=== PATIENT | male | born 2000 | race Caucasian/White ===

== ENCOUNTER 2023-10-30 11:47 | Outpatient (CLI) | payer BC, SELFPAY ==
[2023-10-30 12:02] LABS: Hematocrit 46.6 % (42.0-52.0); Hemoglobin 15.4 g/dL (14.0-18.0); Mean Corpuscular Hemoglobin 29.7 pg (26-34); Mean Corpuscular Volume 89.8 fl (80-100); Mean Platelet Volume 8.8 fl (7.4-10.4); Platelet Count Result 288 k/mm3 (150-375); Red Blood Count 5.19 M/mm3 (4.6-6.20); Red Cell Distribution Width 13.2 % (11.5-14.5); White Blood Count 6.6 K/mm3 (4.5-10.0)
[2023-10-30 12:17] LABS: Alanine Aminotransferase 12 U/L (6-50); Albumin Level 4.7 g/dL (3.5-5.1); Alkaline Phosphatase 62 U/L (38-126); Anion Gap 8 mmol/L (4-12); Aspartate Amino Transferase 28 U/L (17-59); Bilirubin,Total 0.7 mg/dL (0.2-1.3); Blood Urea Nitrogen 14 mg/dL (9-20); Calcium 9.3 mg/dL (8.4-10.2); Carbon Dioxide 30 mmol/L (22-30); Chloride 99 mmol/L (98-107); Estimated Glomerular Filt Rate > 60; Glucose 98 mg/dL (65-110); Potassium 4.3 mmol/L (3.4-5.0); Sodium 137 mmol/L (137-145)
== END 2023-10-30 11:48 | disposition home or self-care (01) ==
PROVIDERS: PCP Internal Medicine; Visit Provider Nurse Practitioner Family
DX: K59.00 Constipation, unspecified (principal); R10.9 Unspecified abdominal pain
CPT/HCPCS: 36415; 80053; 84443; 85027

== ENCOUNTER 2023-12-01 00:49 | Day surgery (SDC) | payer BC, SELFPAY ==
[2023-11-17 10:32] VITALS: BMI 23.1
[2023-12-01 07:24] VITALS: BP 113/61; PULSE 80; RESP 16; TEMP 36; O2SAT 98; BMI 22.5
[2023-12-01] MEDS: LACTATED RINGERS 1,000 ML 150 ML IV CONT (07:35)
--- NOTE | 2023-12-01 08:06 | P.PNAN_ITS ---
Anes - Initial Pre Proc Eval Procedure: Operation Date: 12/01/23 08:30 Proposed Procedures p Colonoscopy - Dewey Castillo MD Date/Time: 12/01/23 08:06 Surgeon: Dewey Castillo MD Pre Op Diagnosis: Constipation, Abd. Pain, CIBH Patient Data Age: 23 Gender: M Height: 1.7 m Weight: 65.3 kg Last Vital Signs Temp 96.8 F L 12/01/23 07:24 Pulse 80 12/01/23 07:24 Resp 16 12/01/23 07:24 BP 113/61 12/01/23 07:24 Pulse Ox 98 12/01/23 07:24 O2 Del Method Room Air 12/01/23 07:24 Allergies Allergy/AdvReac Type Severity Reaction Status Date / Time Sulfa (Sulfonamide Allergy Unknown Unknown Verified 12/01/23 07:23 Antibiotics) Home Medications Medication Instructions Recorded Confirmed Type dicyclomine 10 mg capsule 10 mg PO TID PRN abdominal pain 11/10/23 12/01/23 Rx #90 caps Patient hx anesthesia problems: none Family hx anesthesia problems: none Results Review: All pre-operative results and documents have been reviewed as part of the pre- operative evaluation. [facility] Family History Family History Father Brain cancer Grandparent Lung cancer Social History Social History Smoking status: Never smoker Second hand tobacco smoke exposure: No Alcohol intake: current Drinks per week: 3 Substance use: current Substance use type: marijuana Lack of Transportation: No Lack of Food: Never True Current Housing: I Have Housing Concerned About Future Housing: No Difficulty Paying Gas/Electric Bills: No Difficulty Paying for Meds: No Currently Unemployed: No Education: High School Diploma/GED Difficulty w/ Childcare or Family Care: No Living arrangements: with family Spiritual care concerns: No Anes - Eval Final PreProcedure Day of Procedure 12/01/23 08:06 Patient weight: normal Heart: regular rate and rhythm Lungs: clear to auscultation Airway: Mallampati scale class II Neurological: alert and oriented Last oral intake: >/= 8 hours ASA classification: I Emergent: no Anesthetic plan: proceed Anesthesia type and monitoring: general GIVS and standard monitoring Results Review: All pre-operative results and documents have been reviewed as part of the pre- operative evaluation. Informed Consent: The patient's anesthetic plan and its attendant risks and benefits were discussed with the patient/family/POA. Questions were solicited and answers provided to the satisfaction of the patient/family/POA.
--- NOTE | 2023-12-01 08:12 | WPDHPUPDATE1 ---
History and Physical Update Update Date/Time: 12/01/23 08:12 History and Physical has been reviewed, including an updated exam of the patient. There are NO changes in the patient's condition. Risks, benefits, and alternatives have been discussed and questions answered. Patient agrees to proceed with procedure.
[2023-12-01 08:31] VITALS: BP 96/55; PULSE 77; RESP 18; O2SAT 97
[2023-12-01 08:41] VITALS: BP 96/77; PULSE 59; RESP 20; O2SAT 100
[2023-12-01 08:51] VITALS: BP 108/69; PULSE 66; RESP 21; O2SAT 100
== END 2023-12-01 09:05 | disposition home or self-care (01) ==
PROVIDERS: PCP Internal Medicine; Referring Provider Nurse Practitioner Family; Visit Provider Internal Medicine Gastroenterology
PROC: 0DJD8ZZ Inspection of Lower Intestinal Tract, Via Natural or Artificial Opening Endoscopic (ICD-10-PCS; CPT 45378; principal; 2023-12-01 08:30)
DX: K64.8 Other hemorrhoids (principal); Z80.1 Family history of malignant neoplasm of trachea, bronchus and lung; Z80.8 Family history of malignant neoplasm of other organs or systems
CPT/HCPCS: 45378; J2003; J2704; J7120

== ENCOUNTER 2023-12-22 12:59 | Outpatient (CLI) | payer BC, SELFPAY ==
--- NOTE | ~2023-12-22 | XR_ITS ---
Supine and upright views of the abdomen Clinical history: Abdominal pain, constipation Findings: Bowel gas pattern is nonspecific. No evidence for obstruction or free air. No abnormal mass lesion or calcification is seen. Osseous structures are intact. Impression: Moderate stool burden. Reviewed, dictated and finalized at [facility]. Impression: Moderate stool burden.
[2023-12-22 13:18] LABS: Add Urine Microscopic? YES; Appearance Urine Clear (Clear); Bacteria Urine None Seen /hpf; Bilirubin Urine Negative (Negative); Blood Urine Trace (Negative); Color Urine Yellow (Yellow); Glucose Urine UA Negative (Negative); Ketones Urine Negative (Negative); Leukocyte Esterase Ur Negative LEU/UL (Negative); Nitrate Urine Negative (Negative); Non Pathogenic Casts 0-2; Protein Urine Negative (Negative); Specific Grav Ur 1.007 (1.001-1.035); Squamous Epithelial Cell Urine None Seen /hpf (Few); Urobilinogen Urine 0.2 mg/dL (<2.0); WBC Urine 0-5 /hpf (0-3)
== END 2023-12-22 13:00 | disposition home or self-care (01) ==
LOC: ANHIMG 13:00
PROVIDERS: PCP Internal Medicine; Visit Provider Nurse Practitioner Family
DX: K59.00 Constipation, unspecified (principal); R10.9 Unspecified abdominal pain
CPT/HCPCS: 74018; 81001

== ENCOUNTER 2024-01-12 08:19 | Outpatient (CLI) | payer BC, SELFPAY ==
--- NOTE | ~2024-01-12 | CT_ITS ---
EXAMINATION: CT abdomen pelvis w con DATE: 01/12/2024 09:22 INDICATION: Unspecified abdominal pain TECHNIQUE: Computed tomography (CT) of the abdomen and pelvis was performed with 100 mL Omnipaque-350 intravenous contrast. Automated exposure control and iterative reconstruction technique were employe d. The dose-length product was 250.29 mGy-cm. COMPARISON: None FINDINGS: Lung bases are clear. Heart size is normal. No pericardial or pleural effusion. Liver, gallbladder, s pleen, pancreas, bilateral adrenal glands and left kidney are normal. 1.6 similar exophytic cyst dmitri ing from the lower pole of the right kidney. Bowels including the appendix are normal. Bladder is nor mal. No free intraperitoneal gas or fluid. No pathologically enlarged abdominal or pelvic lymphadenop athy. 14 degree thoracolumbar dextrocurvature. IMPRESSION: 1. No acute intra-abdominal/pelvic process. Reviewed, dictated and finalized at location [facility]. [facility]
== END 2024-01-12 08:20 | disposition home or self-care (01) ==
PROVIDERS: PCP Internal Medicine; Visit Provider Nurse Practitioner Family
DX: R10.9 Unspecified abdominal pain (principal)
CPT/HCPCS: 74177; Q9967

== ENCOUNTER 2024-01-26 15:44 | Outpatient (CLI) | payer BC, SELFPAY ==
[2024-01-28 15:38] LABS: Immunoglobulin A 268 mg/dL (47-310); TTG IGA AB <1.0 U/mL
== END 2024-01-26 15:45 | disposition home or self-care (01) ==
PROVIDERS: PCP Internal Medicine; Visit Provider Nurse Practitioner Family
DX: R14.0 Abdominal distension (gaseous) (principal); R63.4 Abnormal weight loss; R68.81 Early satiety
CPT/HCPCS: 36415; 82784; 86364

== ENCOUNTER 2024-06-30 17:37 | Outpatient (CLI) | payer BC, SELFPAY ==
--- OUTSIDE RECORDS SUMMARY | 2024-06-30 17:40 | XMS_ITS | Clinical Summary ---
Author Organization [facility] Address [address] [place] [id number] Care Team Providers Care Vice President Of Marketing Name Role Phone Bryan Verdugo DO Primary Care Provider [phone] Allergies Active Allergy Reactions Criticality Noted Date Comments Sulfa Rash Medium 05/11/2024 Medications acetaminophen (TYLENOL) 500 mg tablet Take 2 tablets (1,000 mg total) by mouth every 6 (six) hours as needed for pain 42 tablet 05/11/2024 Active dicyclomine (BENTYL) 20 mg tabletIndicatio ns:Abdominal Pain with Cramps Take 1 tablet (20 mg total) by mouth every 6 (six) hours as needed (For a bd pain) 20 tablet 05/11/2024 Active Encounters Date Type Department Care Team Description 05/11/2024 8:34 PM CDT - 05/11/2024 11:15 PM CDT Emergency [facility] Emergency Department [address] [place] [id number] Richmond Sanchez MD Abdominal pain (Primary Dx); Hematochezia Discharge Disposition: Discharge to home or self care from Last 3 Months Medical History Medical History Date Comments IBS (irritable bowel syndrome) Social History Tobacco Use Types Packs/Day Years Used Date Smoking Tobacco: Never Assessed Personal Safety Answer Date Recorded Have you ever been in or are you currently in a harmful physical or emotional relationship or is someone making you feel afraid or unsafe? 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 Gender Identity Not on file Sexual Orientation Not on file Obstetrics History Last Filed Vital Signs Vital Sign Reading Time Taken Comments Blood Pressure 107/66 05/11/2024 10:43 PM CDT Pulse 57 05/11/2024 10:43 PM CDT Temperature 36.9 C (98.5 F) 05/11/2024 8:05 PM CDT Respiratory Rate 18 05/11/2024 10:4 3 PM CDT Oxygen Saturation 99% 05/11/2024 10: 43 PM CDT Inhaled Oxygen Concentration - - Weight 59.3 kg (130 lb 11.7 oz) 05/11/2024 8:05 PM CDT Height - - Body Mass Index - - Plan of Treatment Health Maintenance Due Date Last Done Comments Depression Screening 2000 Hepatitis C Screening 2000 Meningococcal B Vaccine (2 of 2 - Bexsero SCDM 2-dose series) 05/31/2018 11/30/2017 Regular Well Visit/Exam 18-64 2018 DTaP/Tdap/Td Vaccine (7 - Td or Tdap) 09/24/2021 09/25/2011, 09/04/2006, 02/07/2002, Additional history exists Covid-19 Vaccine ( season) 2023 06/11/2020, 05/21/2020 Influenza Vaccine (Season Ended) 2024 12/19/2018, 11/28/2014 Hepatitis B Screening Completed 11/05/2001 , 03/08/2001, 01/06/2001 Pneumococcal vaccine <65 Aged Out 002, 05/07/2001, 03/08/2001, Additional history exists No longer eligible based on patient's age to complete this topic Varicella Vaccines Completed 09/04/2006, 11/05/2001 HPV Vaccines Completed 09/03/2015, 07/2014, 08/22/2014 Procedures Procedure Name Priority Date/Time Associated Diagnosis Comments DRUGS OF ABUSE SCREEN, URINE WITHOUT CONFIRMATION STAT 05/11/2024 9:[address] ABDOMEN PELVIS W CONTRAST ED 05/11/2024 9:38 PM CDT URINALYSIS, MICROSCOPIC ONLY STAT 05/11/2024 8:51 PM CDT URINALYSIS AND REFLEX TO MICROSCOPIC AND CULTURE STAT 05/11/2024 8:51 PM CDT LIPASE Add-On 05/11/2024 8:31 PM CDT EGFR STAT 05/11/2024 8:31 PM CDT DIFFERENTIAL AUTO STAT 05/11/2024 8:3 1 PM CDT COMPREHENSIVE METABOLIC PANEL STAT 05/11/2024 8:31 PM CDT CBC WITH AUTO DIFFERENTIAL STAT 05/11/2024 8:31 PM CDT from Last 3 Months Results * (ABNORMAL) Drugs of Abuse Screen, Urine without Confirmation (05/11/2024 9:50 PM CDT) [facility] Amphetamine, ur Not Detected CutOff 500ng/mL Comment: Interpretive Data - Amphetamines: Samples containing greater than 500 ng/mL d-methamphetamine or other cross-reacting amphetamine compounds are reported as positive. Amphetamine immunoassays are subject to significant false positive rates due to cross-reactivity of non-amphetamine drugs. Confirmatory testing required for definitive results. Current Interpretive Data was last reviewed 2022. Testing performed by: [address] [address] Barbiturates, ur Not Detected CutOff 200ng/mL SUNIL Comment: Interpretive Data - Barbiturates: Samples containing greater than 200 ng/mL secobarbital or other cross-reacting barbiturate compounds are reported as positive. False positive and false negative results are possible. Confirmatory testing required for definitive results. Current Interpretive Data was last reviewed 2022. Testing performed by: [address] [address] Benzodiazepines, ur Not Detected CutOff 100ng/mL SUNIL Comment: Interpretive Data - Benzodiazepines: Samples containing greater than 100 ng/mL nordiazepam or other cross-reacting compounds are reported as positive. False positive and false negative results are possible. Confirmatory testing required for definitive results. Current Interpretive Data was last reviewed 2022. Testing performed by: [facility], [address] [place] [address]., [address] Cannabinoids, ur Screen Positive, presumptive (A) CutOff 50 ng/mL [facility] Comment: Interpretive Data - Cannabinoids: Samples containing greater than 50 ng/mL delta-9 THC -COOH or other cross- reacting compounds are reported as positive. False positive and false negative results are possible. Confirmatory testing required for definitive results. Current Interpretive Data was last reviewed 2022. Testing performed by: [facility], [address] [place] [address], [place]., [address] Cocaine, ur Not Detected CutOff 150ng/mL [facility] Comment: Interpretive Data - Cocaine: Samples containing greater than 150 ng/mL benzoylecgonine or other cross- reacting compounds are reported as positive. False positive and false negative results are possible. Confirmatory testing required for definitive results. Current Interpretive Data was last reviewed 2022. Testing performed by: [facility], [address] [place] [address]., [address] Fentanyl, Ur Not Detected CutOff 5 ng/mL [facility] Comment: Interpretive Data - Fentanyl: Samples containing greater than 1 ng/mL fentanyl or other cross-reacting fentanyl compounds are reported as positive. False positive and false negative results are possible. Confirmatory testing required for definitive results. Current Interpretive Data was last reviewed 2022. Testing performed by: [address] [address] Methadone, ur Not Detected CutOff 300ng/mL [facility] Comment: Interpretive Data - Methadone: Samples containing greater than 300 ng/mL d,l-methadone or other cross-reacting compounds are reported as positive. False positive and false negative results are possible. Confirmatory testing required for definitive results. Current Interpretive Data was last reviewed 2022. Testing performed by: [address] [address] Opiates, ur Not Detected CutOff 300ng/mL [facility] Comment: Interpretive Data - Opiates: Samples containing greater than 300 ng/mL morphine or other cross-reacting compounds are reported as positive. False positive and false negative results are possible. Confirmatory testing required for definitive results. Current Interpretive Data was last reviewed 2022. Testing performed by: [address] [address] Oxycodone, ur Not Detected CutOff 100ng/mL [facility] Comment: Interpretive Data - Oxycodone: Samples containing greater than 100 ng/mL oxycodone or other cross-reacting compounds are reported as positive. False positive and false negative results are possible. Confirmatory testing required for definitive results. Current Interpretive Data was last reviewed 2022. Testing performed by: [address] [address] Phencyclidine, ur Not Detected CutOff 25 ng/mL [facility] Comment: Interpretive Data - Phencyclidine: Samples containing greater than 25 ng/mL phencyclidine or other cross-reacting compounds are reported as positive. False positive and false negative results are possible. Confirmatory testing required for definitive results. Current Interpretive Data was last reviewed 2022. Testing performed by: [address] [address] Urine Creatinine 133 mg/dL SUNIL Comment: Interpretive Data Urine Creatinine: < 10 mg/dL is extremely dilute = or > 10 but < 20 mg/dL is dilute = or > 20 mg/dL is normal Current Interpretive Data was last revised on 2017. Testing performed by: [address] [address] Urine 05/11/2024 9:50 PM CDT 05/11/2024 9:52 PM CDT Narrative SUNIL - 05/11/2024 10:16 PM CDT Drug of Abuse screening is performed by immunoassay for medical purposes only. This is not to be used for Pain Management purposes. us Richmond Sanchez MD LAB URINE ORDERABLES Final Res ult SUNIL [address] [facility] Department [place] [address] * CT Abdomen Pelvis W Contrast (05/11/2024 9:38 PM CDT) Anatomical Region Laterality Modality Body N/A Computed Tomogra phy 05/11/2024 9:51 PM CDT Narrative 05/11/2024 10:09 PM CDT EXAM DESCRIPTION: CT ABDOMEN PELVIS W CONTRAST REASON FOR STUDY: lower abd pain Ongoing abd pain x 6 months, dx with IBS. Yesterday had bright red rectal bleeding with a BM. Denies hemorrhoids. C/o ongoing abd pain. TECHNIQUE: CT scan of the abdomen and pelvis performed with intravenous and without oral contrast using helical scanning technique with dynamic intravenous contrast injection. Reconstructed coronal and sagittal MPR images reviewed. All images stored on PACS. Automated exposure control was used as a dose optimization technique for this examination. CONTRAST TYPE/DOSE: 100mL of IOVERSOL 350 MG IODINE/ML INTRAVENOUS SYRINGE injected COMPARISON: None available FINDINGS: LOWER CHEST: Imaged lung bases are clear. No pleural effusion. Imaged portions of the heart and esophagus are within normal limits. LIVER: Normal size. No identified cystic or solid masses. Mild periportal edema which can be seen in fluid resuscitation. The portal veins are patent. GALLBLADDER: Normal. BILE DUCTS: No intrahepatic or extrahepatic ductal dilatation. SPLEEN: Normal size. No focal lesions. PANCREAS: No identified cystic or solid masses. No significant calcifications. No adjacent inflammation or peripancreatic fluid collections. Pancreatic duct not dilated. ADRENALS: Normal. KIDNEYS/URINARY TRACT: No identified significant cystic or solid masses. No visualized stones. No hydronephrosis or hydroureter. Symmetric enhancement. Urinary bladder is unremarkable. GI: The stomach is normal. The small bowel and colon are normal in course and caliber with no evidence of obstruction or inflammation. The appendix is normal. PERITONEUM: No free air. Trace volume free pelvic fluid. No lymphadenopathy. RETROPERITONEUM: No mass or adenopathy. REPRODUCTIVE: No significant abnormality. VASCULATURE: No abdominal aortic aneurysm. The abdominal aorta and its branches are patent. MUSCULOSKELETAL: No acute fractures or aggressive osseous lesions. Bone islands are present. IMPRESSION: 1. No discrete CT findings to explain patient's abdominal pain. THIS IS AN ELECTRONICALLY VERIFIED FINAL REPORT 05/11/2024 10:09 PM - Electronically signed by Nadine Anderson M.D. AT: AT Report ID: [id number] Reading Location: [id number] Procedure Note Nadine Anderson MD - 05/11/2024 EXAM DESCRIPTION: CT ABDOMEN PELVIS W CONTRAST REASON FOR STUDY: lower abd pain Ongoing abd pain x 6 months, dx with IBS. Yesterday had bright red rectal bleeding with a BM. Denies hemorrhoids. C/o ongoing abd pain. TECHNIQUE: CT scan of the abdomen and pelvis performed with intravenousand without oral contrast using helical scanning technique with dynamic intravenous contrast injection. Reconstructed coronal and sagittal MPRimages reviewed. All images stored on PACS. Automated exposure control was usedas a dose optimization technique for this examination. CONTRAST TYPE/DOSE: 100mL of IOVERSOL 350 MG IODINE/ML INTRAVENOUSSYRINGE injected COMPARISON: None available FINDINGS: LOWER CHEST: Imaged lung bases are clear. No pleuraleffusion. Imaged portions of the heart and esophagus are within normal limits. LIVER: Normal size. No identified cystic or solid masses. Mildperiportal edema which can be seen in fluid resuscitation. The portal veins arepatent. GALLBLADDER: Normal. BILE DUCTS: No intrahepatic or extrahepatic ductal dilatation. SPLEEN: Normal size. No focal lesions. PANCREAS: No identified cystic or solid masses. No significant calcifications. No adjacent inflammation or peripancreatic fluidcollections. Pancreatic duct not dilated. ADRENALS: Normal. KIDNEYS/URINARY TRACT: No identified significant cystic or solid masses.No visualized stones. No hydronephrosis or hydroureter. Symmetricenhancement. Urinary bladder is unremarkable. GI: The stomach is normal. The small bowel and colon are normal incourse and caliber with no evidence of obstruction or inflammation. The appendixis normal. PERITONEUM: No free air. Trace volume free pelvic fluid. No lymphadenopathy. RETROPERITONEUM: No mass or adenopathy. REPRODUCTIVE: No significant abnormality. VASCULATURE: No abdominal aortic aneurysm. The abdominal aorta and its branches are patent. MUSCULOSKELETAL: No acute fractures or aggressive osseous lesions. Bone islands are present. IMPRESSION: 1. No discrete CT findings to explain patient's abdominalpain. THIS IS AN ELECTRONICALLY VERIFIED FINAL REPORT 05/11/2024 10:09 PM - Electronically signed by Nadine Anderson M.D. AT: AT Report ID: [id number] Reading Location: [place] [address] Richmond Sanchez MD IM CT PROCEDURES Final Result * (ABNORMAL) Urinalysis reflex to microscopic and culture Urine (05/11/2024 8:51 PM CDT) Color, ur Yellow Yellow Comment:Testing performed by : [address] [address] Clarity, ur Cloudy(A) Clear SUNIL Comment:Testing performed by : [address] [address] Specific gravity, ur 1.016 1.003 - 1.030 SUNIL Comment:Testing performed by : [address] [address] pH, urine 7.5 SUNIL Comment: Interpretive Data U rine pH is affected by diet, medications, systemic acid-base disturbances, and renal tubular function. pH may affect urinary stone formation. For example, urine pH below 6.0 may help reduce the tendency for calcium phosphate stones and pH greater than 6.0 may reduce the tendency for uric acid stone formation. Source: [employer] Current Interpretive Data was last revised on 2017 Testing performed by: [address] [address] Protein, ur ql Negative Negative SUNIL Comment:Testing performed by : [address] [address] Glucose, ur ql Negative Negative SUNIL Comment:Testing performed by : [address] [address] Ketones, ur Trace(A) Negative SUNIL Comment:Testing performed by : [address] [address] Bilirubin, ur Negative Negative SUNIL Comment:Testing performed by : [address] [address] Blood, ur Trace(A) Negative SUNIL Comment:Testing performed by : [address] [address] Urobilinogen, ur <2.0 <2.0 mg/dL SUNIL Comment:Testing performed by : [address] [address] Nitrite, ur Negative Negative SUNIL Comment:Testing performed by : [address] [address] Leukocyte esterase, ur Negative Negative SUNIL Comment:Testing performed by : [address] [address] UA reflex comment Reflex to microscopic UA will be performed. SUNIL Comment:Testing performed by : [address] [address] Urine 05/11/2024 8:51 PM CDT 05/11/2024 8:54 PM CDT us Richmond Sanchez MD LAB MICROBIOLOGY - GENERAL ORD ERABLES Final Result Performing Organization Address [facility] Co de Phone Number SUNIL [address] [facility] Department [place] [address] * (ABNORMAL) Urinalysis, microscopic only (05/11/2024 8:51 PM CDT) WBC, ur 0-5 0 - 5 /HPF Comment:Testing performed by : [address] [address] RBC, ur 11-20(A) 0 - 2 /HPF SUNIL Comment:Testing performed by : [address] [address] Mucous, ur Present(A) SUNIL Comment:Testing performed by : [address] [address] Culture Reflex Comment Reflex conditions for urine culture (WBC >10) not met. SUNIL Comment:Testing performed by : [address] [address] Urine 05/11/2024 8:51 PM CDT 05/11/2024 8:54 PM CDT Richmond Sanchez MD LAB URINE ORDERABLES Final Res ult Performing Organization Address [facility] de Phone Number [place] [phone] [facility] [place] [address] * eGFR (05/11/2024 8:31 PM CDT) [facility] eGFR >90 >=60 mL/min/1. 73 m2 Comment: Interpretive Data Reference Interval Normal >/= 90 mL/min/1.73m2 Mildly decreased* 60 - 89 mL/min/1.73m2 Mildly to moderately decreased 45 - 59 mL/min/1.73m2 Moderately to severely decreased 30 - 44 mL/min/1.73m2 Severely decreased 15 - 29 mL/min/1.73m2 Kidney Failure < 15 mL/min/1.73m2 *Relative to young adult level Estimated glomerular filtration rate is determined by the 2020 CKD-EPI equation recommended by the National Kid[employer] (A Unifying Approach to GFR Estimation: Recommendations of the NKF-ASK Task Force on Reassessing the Inclusion of Race in Diagnosing Kidney Disease, JASN 2020). The CKD-EPI equation should not be used for patients with unstable renal function and has not been validated in children and those over 70. Current interpretive data was last reviewed 2020. Testing performed by: [address] [address] Blood 05/11/2024 8:31 PM CDT 05/11/2024 8:35 PM CDT Richmond Sanchez MD LAB BLOOD ORDERABLES Final Res ult Performing Organization Address [facility] Co de Phone Number [place] [phone] [facility] Department [place] [address] * (ABNORMAL) Differential, auto (05/11/2024 8:31 PM CDT) [facility] Neutrophil abs 5.3 1.5 - 6.5 K/cumm Comment:Testing performed by : [address] [address] Imm gran abs 0.0 0.0 - 0.1 K/cumm SUNIL Comment:Testing performed by : [address] [address] Lymphocyte abs 2.6 0.8 - 3.3 K/cumm CERNER Comment:Testing performed by : [address] [address] Monocyte abs 0.5 0.2 - 0.8 K/cumm CERNER Comment:Testing performed by : [address] [address] Eosinophil abs 0.7(H) 0.0 - 0.5 K/cumm CERNER Comment:Testing performed by : [address], [place]., [address] Basophil abs 0.0 0.0 - 0.1 K/cumm CERPUAM Comment:Testing performed by : [address] [address] Neutrophil pct 57.7 % CERNER Comment: Interpretive Data Percent cell count reference ranges are not reported, since discordance with absolute values may lead to misinterpretation of CBC data. Current Interpretive Data was last revised on 2017. Testing performed by: [address] [address] Imm gran pct 0.2 % CERNER Comment: Interpretive Data Percent cell count reference ranges are not reported, since discordance with absolute values may lead to misinterpretation of CBC data. Current Interpretive Data was last revised on 2017. Testing performed by: [address] [address] Lymphocyte pct 28.7 % CERNER Comment: Interpretive Data Percent cell count reference ranges are not reported, since discordance with absolute values may lead to misinterpretation of CBC data. Current Interpretive Data was last revised on 2017. Testing performed by: [address] [address] Monocyte pct 5.9 % CERNER Comment: Interpretive Data Percent cell count reference ranges are not reported, since discordance with absolute values may lead to misinterpretation of CBC data. Current Interpretive Data was last revised on 2017. Testing performed by: [address] [address] Eosinophil pct 7.1 % CERNER Comment: Interpretive Data Percent cell count reference ranges are not reported, since discordance with absolute values may lead to misinterpretation of CBC data. Current Interpretive Data was last revised on 2017. Testing performed by: [address] [address] Basophil pct 0.4 % SUNIL LAST Comment: Interpretive Data Percent cell count reference ranges are not reported, since discordance with absolute values may lead to misinterpretation of CBC data. Current Interpretive Data was last revised on 2017. Testing performed by: [address] [address] Blood 05/11/2024 8:31 PM CDT 05/11/2024 8:35 PM CDT us Richmond Sanchez MD LAB BLOOD ORDERABLES Final Res ult [facility] [address] [facility] Department [place] [address] * (ABNORMAL) CBC with auto differential (05/11/2024 8:31 PM CDT) WBC 9.2 3.8 - 9.9 K/cumm Comment:Testing performed by : [address] [address] Hgb 14.4 13.0 - 17.5 g/dL SUNIL LAST Comment:Testing performed by : [address] [address] Hct 42.7 38.9 - 50.3 % SUNLI LAST Comment:Testing performed by : [address] [address] Plt 280 150 - 400 K/cumm SUNIL LAST Comment:Testing performed by : [address] [address] MPV 9.0(L) 9.1 - 12.3 fL SUNIL LAST Comment:Testing performed by : [address] [address] RBC 4.79 4.30 - 5.80 M/cumm SUNIL LAST Comment:Testing performed by : [address] [address] MCV 89.1 81.3 - 96.4 fL SUNIL Comment:Testing performed by : [address] [address] MCH 30.1 27.1 - 33.3 pg SUNIL LAST Comment:Testing performed by : [address] [address] MCHC 33.7 32.3 - 35.7 g/dL SUNIL Comment:Testing performed by : [address] [address] RDW CV 13.0 11.1 - 14.9 % SUNIL Comment:Testing performed by : [address] [address] RDW SD 42.9 35.7 - 48.1 fL SUNIL Comment:Testing performed by : [address] [address] NRBC abs 0.00 0.00 - 0.01 K/cumm SUNIL Comment:Testing performed by : [address], [address] Blood 05/11/2024 8:31 PM CDT 05/11/2024 8:35 PM CDT Richmond Sanchez MD LAB BLOOD ORDERABLES Final Res ult Performing Organization Address [facility] Phone Number SUNIL [address] [facility] Department of Laboratories [place], [place] [phone] * Lipase (05/11/2024 8:31 PM CDT) Lipase 19 10 - 99 Units/L Comment:Testing performed by : [address] [address] Blood 05/11/2024 8:31 PM CDT 05/11/2024 10:34 PM CDT Richmond Sanchez MD LAB BLOOD ORDERABLES Final Res ult SUNIL [address] [facility] Department [place] [address] * Comprehensive metabolic panel (05/11/2024 8:31 PM CDT) Sodium 142 135 - 145 mmol/L Comment:Testing performed by : [address] [address] Potassium, pl 3.4 3.3 - 4.9 mmol/L SUNIL Comment: Hemolyzed; Potassium value may be falsely elevated by as much as 1.0 mmol/L. Suggest redraw and reanalysis. Testing performed by: [address] [address] Chloride 106 97 - 110 mmol/L SUNIL Comment:Testing performed by : [address] [address] CO2 27 22 - 32 mmol/L SUNIL Comment:Testing performed by : [address] [address] Anion gap 9 2 - 15 mmol/L SUNIL Comment:Testing performed by : [address] [address] BUN 11 6 - 25 mg/dL SUNIL Comment:Testing performed by : [address] [address] Creatinine 0.89 0.80 - 1.30 mg/dL SUNIL Comment:Testing performed by : [address] [address] Glucose 114 70 - 199 mg/dL SUNIL Comment: Interpretive Data Fasting glucose >/= 126 mg/dl is diagnostic for diabetes. Fasting is defined as no caloric intake for at least 8 hours. Fasting glucose between 100 mg/dl to 125 mg/dl is diagnostic of prediabetes. In a patient with classic symptoms of hyperglycemia or hyperglycemic crisis, a random glucose >/= 200 mg/dl is diagnostic for diabetes. In the absence of unequivocal hyperglycemia, results should be confirmed by repeat testing. The classification and Diagnosis of Diabetes Diabetes Care 2021; 46: S19-S40. Current interpretive data was last revised 2022. Testing performed by: [address] [address] Calcium 9.7 8.5 - 10.3 mg/dL SUNIL Comment:Testing performed by : [address] [address] Bilirubin, total 0.7 0.1 - 1.2 mg/dL SUNIL Comment:Testing performed by : [address] [address] Protein, pl 7.1 6.5 - 8.5 g/dL SUNIL Comment:Testing performed by : [address] [address] Albumin 4.4 3.5 - 5.0 g/dL SUNIL Comment:Testing performed by : [address] [address] Alk phos 59 40 - 130 Units/L SUNIL Comment:Testing performed by : [address] [address] ALT 11 7 - 55 Units/L SUNIL Comment:Testing performed by : [address] [address] AST 23 10 - 50 Units/L SUNIL Comment: Hemolyzed; result may be falsely elevated Testing performed by: [address] [address] Blood 05/11/2024 8:31 PM CDT 05/11/2024 8:35 PM CDT us Richmond Sanchez MD LAB BLOOD ORDERABLES Final Res ult SUNIL 7460 [facility] Department [place] [address] from Last 3 Months Insurance [employer] PRF PPO [place] Care Teams Vice President Of Marketing Relationship Specialty Start Date End Date Bryan Verdugo DO [address] [address] PCP - General Internal Medicine 05/11/24
--- OUTSIDE RECORDS SUMMARY | 2024-06-30 17:40 | XMS_ITS | Referral Summary ---
Author Organization [facility] Address [address] [place] [id number] Care Team Providers Care Stacker Operator Name Role Phone Bryan Verdugo DO Primary Care Provider [phone] Encounters Date Type Department Care Team Description 05/11/2024 8:34 PM CDT - 05/11/2024 11:15 PM CDT Emergency [facility] Emergency Department [address] [place] [id number] Richmond Sanchez MD Abdominal pain (Primary Dx); Hematochezia Discharge Disposition: Discharge to home or self care from Last 3 Months Allergies Active Allergy Reactions Criticality Noted Date [...] a bd pain) 20 tablet 05/11/2024 Active Social History Tobacco Use Types Packs/Day Years Used Date Smoking Tobacco: Never Assessed Personal Safety Answer Date Recorded Have you ever been in or are you currently in a harmful physical or emotional relationship or is someone making you feel afraid or unsafe? Denies 05/11/2024 Sex and Gender Information Value Date Recorded Sex Assigned at Not on file Legal Sex Male 2:49 AM [employer] Gender Identity Not on file Sexual Orientation Not on file Last Filed Vital Signs Vital Sign Reading [...] Mass Index - - Plan of Treatment Not on file Procedures Procedure Name Priority Date/Time Associated Diagnosis [...] Urine without Confirmation (05/11/2024 9:50 PM CDT) Amphetamine, ur Not Detected CutOff 500ng/mL Comment: Interpretive Data - Amphetamines: Samples containing greater than 500 ng/mL d-methamphetamine or other cross-reacting amphetamine compounds are reported as positive. Amphetamine immunoassays are subject to significant false positive rates due to cross-reactivity of non-amphetamine drugs. Confirmatory testing required for definitive results. Current Interpretive Data was last reviewed 2022. Testing performed by: [facility], [address] [place] [address]., [address] Barbiturates, ur Not Detected CutOff 200ng/mL [facility] Comment: Interpretive Data - Barbiturates: Samples containing greater than 200 ng/mL secobarbital or other cross-reacting barbiturate compounds are reported as positive. False positive and false negative results are possible. Confirmatory testing required for definitive results. Current Interpretive Data was last reviewed 2022. Testing performed by: [address] [address] Benzodiazepines, ur Not Detected CutOff 100ng/mL [facility] Comment: Interpretive Data - Benzodiazepines: Samples containing greater than 100 ng/mL nordiazepam or other cross-reacting compounds are reported as positive. False positive and false negative results are possible. Confirmatory testing required for definitive results. Current Interpretive Data was last reviewed 2022. Testing performed by: [address] [address] Cannabinoids, ur Screen Positive, presumptive (A) CutOff 50 ng/mL [facility] Comment: Interpretive Data - Cannabinoids: Samples containing greater than 50 ng/mL delta-9 THC -COOH or other cross- reacting compounds are reported as positive. False positive and false negative results are possible. Confirmatory testing required for definitive results. Current Interpretive Data was last reviewed 2022. Testing performed by: [address] [address] Cocaine, ur Not Detected CutOff 150ng/mL [facility] Comment: Interpretive Data - Cocaine: Samples containing greater than 150 ng/mL benzoylecgonine or other cross- reacting compounds are reported as positive. False positive and false negative results are possible. Confirmatory testing required for definitive results. Current Interpretive Data was last reviewed 2022. Testing performed by: [address] [address] Fentanyl, Ur Not Detected CutOff 5 ng/mL [facility] Comment: Interpretive Data - Fentanyl: Samples containing greater than 1 ng/mL fentanyl or other cross-reacting fentanyl compounds are reported as positive. False positive and false negative results are possible. Confirmatory testing required for definitive results. Current Interpretive Data was last reviewed 2022. Testing performed by: [address] [address] Methadone, ur Not Detected CutOff 300ng/mL [facility] Comment: Interpretive Data - Methadone: Samples containing greater than 300 ng/mL d,l-methadone or other cross-reacting compounds are reported as positive. False positive and false negative results are possible. Confirmatory testing required for definitive results. Current Interpretive Data was last reviewed 2022. Testing performed by: [address] [address] Opiates, ur Not Detected CutOff 300ng/mL [facility] Comment: Interpretive Data - Opiates: Samples containing greater than 300 ng/mL morphine or other cross-reacting compounds are reported as positive. False positive and false negative results are possible. Confirmatory testing required for definitive results. Current Interpretive Data was last reviewed 2022. Testing performed by: [address] [address] Oxycodone, ur Not Detected CutOff 100ng/mL [facility] Comment: Interpretive Data - Oxycodone: Samples containing greater than 100 ng/mL oxycodone or other cross-reacting compounds are reported as positive. False positive and false negative results are possible. Confirmatory testing required for definitive results. Current Interpretive Data was last reviewed 2022. Testing performed by: [address] [address] Phencyclidine, ur Not Detected CutOff 25 ng/mL [facility] Comment: Interpretive Data - Phencyclidine: Samples containing greater than 25 ng/mL phencyclidine or other cross-reacting compounds are reported as positive. False positive and false negative results are possible. Confirmatory testing required for definitive results. Current Interpretive Data was last reviewed 2022. Testing performed by: [address] [address] Urine Creatinine 133 mg/dL SUNIL Comment: Interpretive Data Urine Creatinine: < 10 mg/dL is extremely dilute = or > 10 but < 20 mg/dL is dilute = or > 20 mg/dL is normal Current Interpretive Data was last revised on 2017. Testing performed by: [facility], [address] [place] [address], [place]., [address] Urine 05/11/2024 9:50 PM CDT 05/11/2024 9:52 PM CDT Narrative SUNIL LAST - 05/11/2024 10:16 PM CDT Drug of Abuse screening is performed by immunoassay for medical purposes only. This is not to be used for Pain Management purposes. us Richmond Sanchez MD LAB URINE ORDERABLES Final Res ult SUNIL LAST [address] [facility] Department [place] [address] * CT Abdomen Pelvis W [...] Nadine Anderson M.D. AT: AT Report ID: [id number] Reading Location: [id number] Procedure Note Nadine Anderson MD - 05/11/2024 [...] Nadine Anderson M.D. AT: AT Report ID: [id number] Reading Location: [place] [address] Richmond Sanchez MD IM CT PROCEDURES Final Result * (ABNORMAL) Urinalysis reflex to microscopic and culture Urine (05/11/2024 8:51 PM CDT) Color, ur Yellow Yellow Comment:Testing performed by : [address] [address] Clarity, ur Cloudy(A) Clear SUNIL Comment:Testing performed by : [address] [address] Specific gravity, ur 1.016 1.003 - 1.030 SUNIL Comment:Testing performed by : [address] [address] pH, urine 7.5 SUNIL Comment: Interpretive Data U rine pH is affected by diet, medications, systemic acid-base disturbances, and renal tubular function. pH may affect urinary stone formation. For example, urine pH below 6.0 may help reduce the tendency for calcium phosphate stones and pH greater than 6.0 may reduce the tendency for uric acid stone formation. Source: [facility] Current Interpretive Data was last revised on 2017 Testing performed by: [facility], [address] [place] [address], [place]., [address] Protein, ur ql Negative Negative SUNIL Comment:Testing performed by : [address], [place]., [address] Glucose, ur ql Negative Negative SUNIL Comment:Testing performed by : [address], [place]., [address] Ketones, ur Trace(A) Negative SUNIL Comment:Testing performed by : [address], [place]., [address] Bilirubin, ur Negative Negative SUNIL Comment:Testing performed by : [address], [place]., [address] Blood, ur Trace(A) Negative SUNIL Comment:Testing performed by : [address], [place]., [address] Urobilinogen, ur <2.0 <2.0 mg/dL SUNIL Comment:Testing performed by : [address], [place]., [address] Nitrite, ur Negative Negative SUNIL Comment:Testing performed by : [address] [address] Leukocyte esterase, ur Negative Negative SUNIL Comment:Testing performed by : [address], [place]., [address] UA reflex comment Reflex to microscopic UA will be performed. SUNIL Comment:Testing performed by : [address] [address] Urine 05/11/2024 8:51 PM CDT 05/11/2024 8:54 PM CDT us Richmond Sanchez MD LAB MICROBIOLOGY - GENERAL ORD ERABLES Final Result SUNIL SHALA [address] [facility] Department [place] [address] * (ABNORMAL) Urinalysis, microscopic only (05/11/2024 8:51 PM CDT) WBC, ur 0-5 0 - 5 /HPF Comment:Testing performed by : [facility], [address] [place] [address]., [address] RBC, ur 11-20(A) 0 - 2 /HPF SUNIL Comment:Testing performed by : [address] [address] Mucous, ur Present(A) SUNIL Comment:Testing performed by : [address] [address] Culture Reflex Comment Reflex conditions for urine culture (WBC >10) not met. SUNIL Comment:Testing performed by : [address] [address] Urine 05/11/2024 8:51 PM CDT 05/11/2024 8:54 PM CDT us Richmond Sanchez MD LAB URINE ORDERABLES Final Res ult SUNIL [address] [facility] Department of Laboratories [place], [place] [id number] * eGFR (05/11/2024 8:31 PM CDT) Pathologist [facility] eGFR >90 >=60 mL/min/1. 73 m2 Comment: [...] was last reviewed 2020. Testing performed by: [address] [address] Blood 05/11/2024 8:31 PM CDT 05/11/2024 8:35 PM CDT us Richmond Sanchez MD LAB BLOOD ORDERABLES Final Res ult [facility] [address] [facility] Department [place] [address] * (ABNORMAL) Differential, auto (05/11/2024 8:31 PM CDT) Neutrophil abs 5.3 1.5 - 6.5 K/cumm Comment:Testing performed by : [address] [address] Imm gran abs 0.0 0.0 - 0.1 K/cumm SUNIL Comment:Testing performed by : [address] [address] Lymphocyte abs 2.6 0.8 - 3.3 K/cumm SUNIL Comment:Testing performed by : [address] [address] Monocyte abs 0.5 0.2 - 0.8 K/cumm SUNIL Comment:Testing performed by : [address] [address] Eosinophil abs 0.7(H) 0.0 - 0.5 K/cumm SUNIL Comment:Testing performed by : [address] [address] Basophil abs 0.0 0.0 - 0.1 K/cumm SUNIL Comment:Testing performed by : [address] [address] Neutrophil pct 57.7 % SUNIL Comment: Interpretive Data Percent cell count reference ranges are not reported, since discordance with absolute values may lead to misinterpretation of CBC data. Current Interpretive Data was last revised on 2017. Testing performed by: [address] [address] Imm gran pct 0.2 % [facility] Comment: Interpretive Data Percent cell count reference ranges are not reported, since discordance with absolute values may lead to misinterpretation of CBC data. Current Interpretive Data was last revised on 2017. Testing performed by: [address] [address] Lymphocyte pct 28.7 % [facility] Comment: Interpretive Data Percent cell count reference ranges are not reported, since discordance with absolute values may lead to misinterpretation of CBC data. Current Interpretive Data was last revised on 2017. Testing performed by: [address] [address] Monocyte pct 5.9 % [facility] Comment: Interpretive Data Percent cell count reference ranges are not reported, since discordance with absolute values may lead to misinterpretation of CBC data. Current Interpretive Data was last revised on 2017. Testing performed by: [address] [address] Eosinophil pct 7.1 % [facility] Comment: Interpretive Data Percent cell count reference ranges are not reported, since discordance with absolute values may lead to misinterpretation of CBC data. Current Interpretive Data was last revised on 2017. Testing performed by: [address] [address] Basophil pct 0.4 % [facility] Comment: Interpretive Data Percent cell count reference ranges are not reported, since discordance with absolute values may lead to misinterpretation of CBC data. Current Interpretive Data was last revised on 2017. Testing performed by: [address] [address] Blood 05/11/2024 8:31 PM CDT 05/11/2024 8:35 PM CDT us Richmond Sanchez MD LAB BLOOD ORDERABLES Final Res ult SUNIL LAST [address] [facility] Department [place] [address] * (ABNORMAL) CBC with auto differential (05/11/2024 8:31 PM CDT) [facility] WBC 9.2 3.8 - 9.9 K/cumm Comment:Testing performed by : [address], [address] Hgb 14.4 13.0 - 17.5 g/dL SUNIL Comment:Testing performed by : [address] [address] Hct 42.7 38.9 - 50.3 % USNIL Comment:Testing performed by : [address] [address] Plt 280 150 - 400 K/cumm SUNIL Comment:Testing performed by : [address] [address] MPV 9.0(L) 9.1 - 12.3 fL SUNIL Comment:Testing performed by : [address], [address] RBC 4.79 4.30 - 5.80 M/cumm SUNIL Comment:Testing performed by : [address], [address] MCV 89.1 81.3 - 96.4 fL SUNIL Comment:Testing performed by : [address], [address] MCH 30.1 27.1 - 33.3 pg SUNIL Comment:Testing performed by : [address] [address] MCHC 33.7 32.3 - 35.7 g/dL SUNIL Comment:Testing performed by : [address], [address] RDW CV 13.0 11.1 - 14.9 % SUNIL Comment:Testing performed by : [address], [address] RDW SD 42.9 35.7 - 48.1 fL SUNIL Comment:Testing performed by : [address] [address] NRBC abs 0.00 0.00 - 0.01 K/cumm SUNIL Comment:Testing performed by : [address], [address] Blood 05/11/2024 8:31 PM CDT 05/11/2024 8:35 PM CDT us Richmond Sanchez MD LAB BLOOD ORDERABLES Final Res ult Performing Organization Address City/[facility]/ZIP Co de Phone Number [address] [address] * Lipase (05/11/2024 8:31 PM CDT) Pathologist [facility] Lipase 19 10 - 99 Units/L Comment:Testing performed by : [address] [address] Blood 05/11/2024 8:31 PM CDT 05/11/2024 10:34 PM CDT Richmond Sanchez MD LAB BLOOD ORDERABLES Final Res ult Performing Organization Address [facility] Co de Phone Number [address] [address] * Comprehensive metabolic panel (05/11/2024 8:31 PM CDT) [facility] Sodium 142 135 - 145 mmol/L Comment:Testing performed by : [address] [address] Potassium, pl 3.4 3.3 - 4.9 mmol/L SUNIL Comment: Hemolyzed; Potassium value may be falsely elevated by as much as 1.0 mmol/L. Suggest redraw and reanalysis. Testing performed by: [address] [address] Chloride 106 97 - 110 mmol/L SUNIL Comment:Testing performed by : [address] [address] CO2 27 22 - 32 mmol/L SUNIL Comment:Testing performed by : [address] [address] Anion gap 9 2 - 15 mmol/L SUNIL Comment:Testing performed by : [address] [address] BUN 11 6 - 25 mg/dL SUNIL Comment:Testing performed by : [address], [place]., [address] Creatinine 0.89 0.80 - 1.30 mg/dL SUNIL Comment:Testing performed by : [address] [address] Glucose 114 70 - 199 mg/dL SUNIL [...] was last revised 2022. Testing performed by: [address] [address] Calcium 9.7 8.5 - 10.3 mg/dL [facility] Comment:Testing performed by : [address] [address] Bilirubin, total 0.7 0.1 - 1.2 mg/dL [facility] Comment:Testing performed by : [address] [address] Protein, pl 7.1 6.5 - 8.5 g/dL [facility] Comment:Testing performed by : [address] [address] Albumin 4.4 3.5 - 5.0 g/dL [facility] Comment:Testing performed by : [address] [address] Alk phos 59 40 - 130 Units/L SUNIL Comment:Testing performed by : [address] [address] ALT 11 7 - 55 Units/L SUNIL Comment:Testing performed by : [address] [address] AST 23 10 - 50 Units/L USNIL LAST Comment: Hemolyzed; result may be falsely elevated Testing performed by: [facility], [address] [place] [address], [place]., [address] Blood 05/11/2024 8:31 PM CDT 05/11/2024 8:35 PM CDT us Richmond Sanchez MD LAB BLOOD ORDERABLES Final Res ult SUNIL LAST [address] [facility] Department [place] [address] from Last 3 Months Insurance BL [employer] PRF PPO [place] Care Teams Stacker Operator Relationship Specialty Start Date End Date Bryan Verdugo DO [address] [place] [address] PCP - General Internal Medicine 05/11/24
[2024-06-30 18:12] LABS: Alanine Aminotransferase 25 U/L (6-50); Alkaline Phosphatase 75 U/L (38-126); Anion Gap 9 mmol/L (4-12); Aspartate Amino Transferase 32 U/L (17-59); Blood Urea Nitrogen 16 mg/dL (9-20); Calcium 9.6 mg/dL (8.4-10.2); Carbon Dioxide 29 mmol/L (22-30); Chloride 102 mmol/L (98-107); Estimated Glomerular Filt Rate > 60; Glucose 81 mg/dL (65-110); Magnesium 2.2 mg/dL (1.6-2.3); Potassium 3.5 mmol/L (3.4-5.0); Sodium 140 mmol/L (137-145)
== END 2024-06-30 17:38 | disposition home or self-care (01) ==
LOC: ANHLAB 17:38
PROVIDERS: PCP Internal Medicine; Visit Provider Internal Medicine
DX: R25.2 Cramp and spasm (principal)
CPT/HCPCS: 36415; 80053; 83735